=== PATIENT | female | born 1985 | race Caucasian/White ===

== ENCOUNTER 2019-03-10 14:08 | Emergency (ER) | payer OTHER ==
[2019-03-10 14:29] VITALS: BMI 24.4
[2019-03-10] MEDS ORDERED: Sodium Chloride 0.9% 1,000 ML IV STA (14:34)
[2019-03-10 14:57] LABS: BASO % 0.4 % (0.0-2.0); EOS # 0.1 K/uL (0.0-0.7); EOS % 1.7 % (0.0-4.0); HEMOGLOBIN 13.5 g/dL (11.0-16.0); LYMPH # 2.5 K/uL (1.0-4.3); MEAN CELL VOLUME 92.1 fL (81.0-99.0); MEAN CORPUSCULAR HEMOGLOBIN 32.1 pg (27.0-31.0); MEAN CORPUSCULAR HGB CONC 34.9 g/dL (33.0-37.0); MEAN PLATELET VOLUME 8.5 fL (7.2-11.7); MONO # 0.5 K/uL (0.0-0.8); MONO % 6.6 % (0.0-10.0); NEUT % 61.3 % (50.0-75.0); NRBC % 0.1 % (0.0-2.0); RBC 4.19 Mil/uL (3.80-5.20); RED CELL DISTRIBUTION WIDTH 13.2 % (11.5-14.5); WHITE BLOOD COUNT 8.2 K/uL (4.8-10.8)
[2019-03-10 14:59] LABS: HCG,QUALITATIVE URINE POSITIVE (NEGATIVE)
[2019-03-10 15:09] LABS: SQUAMOUS EPITHIAL 6 /hpf (0-5); URINE BACTERIA OCC (<OCC); URINE BILIRUBIN NEGATIVE (NEGATIVE); URINE BLOOD 1+ (NEGATIVE); URINE CLARITY Hazy (Clear); URINE COLOR Yellow (YELLOW); URINE GLUCOSE (UA) NORMAL (Normal); URINE LEUKOCYTE ESTERASE 2+ Leu/uL (Negative); URINE PROTEIN NEGATIVE (NEGATIVE); URINE UROBILINOGEN NORMAL mg/dL (0.2-1.0)
[2019-03-10 15:14] LABS: ALB/GLOB RATIO 1.6 (1.0-2.1); ALBUMIN 4.1 g/dL (3.5-5.0); ALT/SGPT 11 U/L (9-52); AST/SGOT 15 U/L (14-36); BLOOD UREA NITROGEN 9 mg/dL (7-17); CALCIUM 9.3 mg/dl (8.6-10.4); GFR NON-AFRICAN AMERICAN > 60
--- NOTE | 2019-03-10 15:58 | C.PDOC ---
History Of Present Illness 33 y/o female, approximately 8 weeks , presents to the ED for evaluation of vaginal bleeding that began today. Patient describes some brown-royal spotting, associated with lower abdominal discomfort that has been intermittent for a while. Patient was seen by her OB Dr. Rupinder Montalvo and had an ultrasound, was told everything was normal. Today the spotting recurred, prompting patient to come to the ED. Otherwise she denies any fever, chills, nausea, vomiting, bowel or bladder dysfunction. Time Seen by Provider: 03/10/19 14:19 Chief Complaint (Nursing): Female Genitourinary History Per: Patient History/Exam Limitations: no limitations Onset/Duration Of Symptoms: Hrs Current Symptoms Are (Timing): Still Present Quality Of Discomfort: "Pain" Abnormal Vaginal Bleeding: Yes Past Medical History Reviewed: Historical Data, Nursing Documentation, Vital Signs Vital Signs: Last Vital Signs Temp 97.8 F 03/10/19 14:17 Pulse 75 03/10/19 14:17 Resp 18 03/10/19 14:17 BP 123/88 03/10/19 14:17 Pulse Ox 98 03/10/19 14:17 - Medical History PMH: Anxiety (No meds) Family History: States: No Known Family Hx - Social History Hx Alcohol Use: No Hx Substance Use: No - Immunization History Hx Tetanus Toxoid Vaccination: No Hx Influenza Vaccination: No Hx Pneumococcal Vaccination: No Review Of Systems Except As Marked, All Systems Reviewed And Found Negative. Constitutional: Negative for: Fever, Chills Cardiovascular: Negative for: Chest Pain Respiratory: Negative for: Shortness of Breath Gastrointestinal: Positive for: Abdominal Pain (lower). Negative for: Nausea, Vomiting, Diarrhea Genitourinary: Positive for: Vaginal Bleeding (brown-royal spotting). Negative for: Dysuria, Frequency, Incontinence Musculoskeletal: Negative for: Back Pain Skin: Negative for: Rash Neurological: Negative for: Weakness, Numbness Physical Exam - Physical Exam Appears: Non-toxic, No Acute Distress Skin: Warm, Dry, No Rash Head: Atraumatic, Normacephalic Eye(s): bilateral: Normal Inspection, PERRL, EOMI Oral Mucosa: Moist Neck: Normal ROM Chest: Symmetrical Cardiovascular: Rhythm Regular, No Murmur Respiratory: Normal Breath Sounds, No Accessory Muscle Use Gastrointestinal/Abdominal: Soft, Tenderness (Mild suprapubic tenderness), No Guarding, No Rebound Extremity: Bilateral: Atraumatic, Normal Color And Temperature Pulses: Left Dorsalis Pedis: Normal, Right Dorsalis Pedis: Normal Neurological/Psych: Oriented x3, Normal Speech ED Course And Treatment - Laboratory Results Result Diagrams: 03/10/19 14:47 03/10/19 14:47 Lab Results: Total Bilirubin 0.5 mg/dL (0.2-1.3) 03/10/19 14:47 AST 15 U/L (14-36) 03/10/19 14:47 ALT 11 U/L (9-52) 03/10/19 14:47 Alkaline Phosphatase 52 U/L (38-126) 03/10/19 14:47 Total Protein 6.7 g/dL (6.3-8.3) 03/10/19 14:47 Albumin 4.1 g/dL (3.5-5.0) 03/10/19 14:47 Globulin 2.6 gm/dL (2.2-3.9) 03/10/19 14:47 Albumin/Globulin Ratio 1.6 (1.0-2.1) 03/10/19 14:47 Urine Color Yellow (YELLOW) 03/10/19 14:47 Urine Clarity Hazy (Clear) 03/10/19 14:47 Urine pH 6.0 (5.0-8.0) 03/10/19 14:47 Ur Specific Fitzwilliam 1.008 (1.003-1.030) 03/10/19 14:47 Urine Protein Negative mg/dL (NEGATIVE) 03/10/19 14:47 Urine Glucose (UA) Normal mg/dL (Normal) 03/10/19 14:47 Urine Ketones Negative mg/dL (NEGATIVE) 03/10/19 14:47 Urine Blood 1+ (NEGATIVE) H 03/10/19 14:47 Urine Nitrate Negative (NEGATIVE) 03/10/19 14:47 Urine Bilirubin Negative (NEGATIVE) 03/10/19 14:47 Urine Urobilinogen Normal mg/dL (0.2-1.0) 03/10/19 14:47 Ur Leukocyte Esterase 2+ Sonali/uL (Negative) H 03/10/19 14:47 Urine WBC (Auto) 12 /hpf (0-5) H 03/10/19 14:47 Urine RBC (Auto) 1 /hpf (0-3) 03/10/19 14:47 Ur Squamous Epith Cells 6 /hpf (0-5) H 03/10/19 14:47 Urine Bacteria Occ (<OCC) H 03/10/19 14:47 Urine HCG, Qual Positive (NEGATIVE) 03/10/19 14:47 Urine HCG, Qual Positive (NEGATIVE) 03/10/19 14:47 O2 Sat by Pulse Oximetry: 98 (RA) Pulse Ox Interpretation: Normal - CT Scan/US US Other Rad Studies (CT/US): Read By Radiologist, Radiology Report Reviewed CT/US Interpretation: Accession No. : [id number]. Patient Name / ID : PALOMA RUSSELL / [id number]. Exam Date : 03/10/2019 15:27:45 ( Approved ). Study Comment : Sex / Age : F / 33Y. Creator : Clarice Means MD. Dictator : Clarice Means MD. Tricot Knitter : Fresco Artist : Clarice Means MD. Approver2 : Report Date : 03/10/2019 16:25:40. My Comment : . Date of service: 03/10/2019. Indication: , bleeding. Comparison: None available. Technique: Real-time transabdominal pelvic ultrasound was performed. In addition a transvaginal pelvic ultrasound was necessary to better depict pelvic anatomy. Findings: The uterus measures approximately 10.4 x 6.5 x 6.5 cm. Anteverted. Cervix length measures approximately 3.0 cm. There is a single intrauterine fetus present. Gestational sac measures approximately 3.2 cm consistent with gestational age 8 weeks 1 day. 4 mm yolk sac. pole measures approximately 1.9 cm in crown- rump length consistent with 8 weeks 3 days gestational age. Evidence of subchorionic hemorrhages measuring approximately 2.8 x 0.6 x 2.8 cm and 0.6 x 0.5 x 0.4 cm. There is heart motion which measured 148.2 BPM. The right ovary measures 2.7 x 1.8 x 2.1 cm. The left ovary measures 3.1 x 2.7 x 3.3 cm and contains 1.8 x 1.5 x 1.5 cm cyst. Blood flow was demonstrated to both ovaries. Impression: Live single intrauterine with estimated gestational age 8 weeks 1 day by gestational sac calculation and 8 weeks 3 days by crown-rump length calculation. heart rate 148.2 bpm. Evidence of subchorionic hemorrhages measuring approximately 2.8 x 0.6 x 2.8 cm and 0.6 x 0.5 x 0.4 cm. Advise an anomaly screen at 16-18 weeks gestational age Progress Note: Blood work and urine sent to the lab for analysis. /OB US ordered. 1L IV fluids infusing. Labs reviewed. UA shows +leuks, blood, and occasional bacteria. Beta-HCG quant is 103,850. US reviewed, shows single IUP with subchorionic hemorrhages. Blood type is B negative. Rhogam added on. Patient counseled regarding results and the importance of follow up with OB with possible need for Rhogam treatment. Patient verbalizes understanding but states she will follow up with her OB to obtain Rhogam. Will discharge patient home on Macrobid for UTI - initial dose given in the ED. Disposition - Disposition Referrals: Rupinder Montalvo MD [Staff Provider] - Disposition: HOME/ ROUTINE Disposition Time: 16:54 Condition: STABLE Additional Instructions: Follow up with your OBGYN within 1-2 days. Return to ED if feel worse. Prescriptions: Nitrofurantoin Macrocrystals [Macrobid] 1 cap PO BID #14 cap Instructions: Threatened Miscarriage (DC) Forms: [employer] (Guyanese) - Clinical Impression Clinical Impression: Threatened in first trimester - PA / [employer] BLASTING / Resident Statement MD/DO has reviewed & agrees with the documentation as recorded. - Scribe Statement The provider has reviewed the documentation as recorded by the Scribe Onelia Brown All medical record entries made by the Scribe were at my direction and personally dictated by me. I have reviewed the chart and agree that the record accurately reflects my personal performance of the history, physical exam, medical decision making, and the department course for this patient. I have also personally directed, reviewed, and agree with the discharge instructions and disposition.
[2019-03-10 16:14] VITALS: BP 95/58; PULSE 58; RESP 16; TEMP 98.5
[2019-03-10 16:24] VITALS: O2SAT 98
--- NOTE | 2019-03-10 16:29 | US ---
Date of service: 03/10/2019 Indication: , bleeding Comparison: None available Technique: Real-time transabdominal pelvic ultrasound was performed. In addition a transvaginal pelvic ultrasound was necessary to better depict pelvic anatomy. Findings: The uterus measures approximately 10.4 x 6.5 x 6.5 cm. Anteverted. Cervix length measures approximately 3.0 cm. There is a single intrauterine fetus present. Gestational sac measures approximately 3.2 cm consistent with gestational age 8 weeks 1 day. 4 mm yolk sac. pole measures approximately 1.9 cm in crown-rump length consistent with 8 weeks 3 days gestational age. Evidence of subchorionic hemorrhages measuring approximately 2.8 x 0.6 x 2.8 cm and 0.6 x 0.5 x 0.4 cm. There is heart motion which measured 148.2 BPM. The right ovary measures 2.7 x 1.8 x 2.1 cm. The left ovary measures 3.1 x 2.7 x 3.3 cm and contains 1.8 x 1.5 x 1.5 cm cyst. Blood flow was demonstrated to both ovaries. Impression: Live single intrauterine with estimated gestational age 8 weeks 1 day by gestational sac calculation and 8 weeks 3 days by crown-rump length calculation. heart rate 148.2 bpm. Evidence of subchorionic hemorrhages measuring approximately 2.8 x 0.6 x 2.8 cm and 0.6 x 0.5 x 0.4 cm. Advise an anomaly screen at 16-18 weeks gestational age
== END 2019-03-10 18:19 | disposition home or self-care (01) ==
LOC: C.ER 14:08
DX: O20.0 Threatened abortion (principal); Z3A.08 8 weeks gestation of pregnancy
CPT/HCPCS: 76805; 76817; 80053; 81001; 84702; 84703; 85025; 86850; 86900; 96360; 99285; J2792; J7030